=== PATIENT | male | born 1975 | race Caucasian/White ===

== ENCOUNTER 2019-11-01 16:15 | Inpatient (IN) | payer OTHER ==
[~2019-11-01] VITALS: Ht 170.2 cm; Wt 63.6 kg
--- NOTE | 2019-11-01 16:55 | NUR ---
URINE AND BLOOD TO LAB
[2019-11-01 16:57] VITALS: BP 128/69
[2019-11-01 17:08] LABS: BASOPHILS 0.2 % (0-2); EOSINOPHILS 0.1 % (0-7); HEMATOCRIT 43.8 % (42.0-54.0); HEMOGLOBIN 14.5 g/dL (13.5-17.5); IMMATURE GRANULOCYTES 0.3 % (0-5); LYMPHOCYTES 8.1 % (15-50); MCH 31.9 pg (26.0-34.0); MCHC 33.1 g/dL (31.0-37.0); MCV 96.3 fL (80.0-100.0); MONOCYTES 3.9 % (2-11); NEUTROPHILS 87.4 % (40-80); PLATELET COUNT 259 10x3/uL (130-400); RBC 4.55 10x6/uL (4.20-6.10); RDW 13.7 % (11.5-14.5); WBC 16.7 10x3/uL (4.8-10.8)
[2019-11-01 17:16] LABS: CALC OSMOLALITY 277 mosm/kg (275-300); CALCIUM 9.1 mg/dL (8.5-10.1); CARBON DIOXIDE 30.3 mmol/L (21.0-32.0); CHLORIDE - SERUM 102 mmol/L (98-107); GLUCOSE 115 mg/dL (74-106); POTASSIUM - SERUM 4.3 mmol/L (3.5-5.1); SODIUM 138 mmol/L (136-145); UREA NITROGEN 16 mg/dL (7-18); eGFR NON AFRICAN AMERICAN 86 mL/min (90-120)
[2019-11-01 17:24] LABS: ALKALINE PHOSPHATASE 65 U/L (30-120); ALT (SGPT) 26 U/L (10-68); AMYLASE - SERUM 93 U/L (25-115); BILIRUBIN - TOTAL 0.46 mg/dL (0.2-1.3); LIPASE 210 U/L (73-393); PROTEIN - SERUM 7.1 g/dL (6.4-8.2)
[2019-11-01 17:28] LABS: TROPONIN-I < 0.017 ng/mL (0.000-0.060)
[2019-11-01 17:32] LABS: BILIRUBIN NEGATIVE (NEGATIVE); GLUCOSE NEGATIVE (NEGATIVE); KETONE MODERATE mg/dL (NEGATIVE); NITRITE NEGATIVE (NEGATIVE); UROBILINOGEN NORMAL (NORMAL)
[2019-11-01 17:34] VITALS: BP 129/68
[2019-11-01 17:42] LABS: APTT 30.5 SECONDS (22.8-39.4); INR 1.04 (0.85-1.17); PROTIME 13.6 SECONDS (11.6-15.0)
--- NOTE | 2019-11-01 18:41 | NUR ---
PT ARRIVED ON UNIT VIA WHEELCHAIR ESCORTED BY ER STAFF. ORIENNTED TO ROOM AND CALL LIGHT. POSITIONED IN BED FOR COMFORT. IV FLUIDS AND ANTIBIOTICS STARTED.
--- NOTE | 2019-11-01 19:35 | NUR ---
STARTED [address]P[facility] DEPARTMENT WITH MORPHINE AT 04/16/09 WITH WITNESS. INSTRUCTIONS ON USE PROVIDED..PT EXPRESSES UNDERSTANDING.
[2019-11-01 20:00] VITALS: BP 123/66
[2019-11-01 20:20] VITALS: BP 126/66; BMI 21.9
--- NOTE | 2019-11-01 21:30 | NUR ---
HIBACLENS SHOWER PERFORMED.
[2019-11-01 21:34] VITALS: Ht 170.2 cm; Wt 63.6 kg
--- NOTE | 2019-11-01 22:30 | NUR ---
GAVE SUPPOSITORIES, MIRALAX, MOM, AND NS BOLUS PER NEW ORDERS.
[2019-11-02] VITALS: BP 97/49
[2019-11-02 04:00] VITALS: BP 105/47
[2019-11-02 05:19] LABS: BASOPHILS 0.3 % (0-2); EOSINOPHILS 2.9 % (0-7); HEMATOCRIT 39.4 % (42.0-54.0); IMMATURE GRANULOCYTES 0.3 % (0-5); LYMPHOCYTES 23.6 % (15-50); MCH 31.6 pg (26.0-34.0); MCV 95.6 fL (80.0-100.0); MONOCYTES 8.9 % (2-11); PLATELET COUNT 262 10x3/uL (130-400); RBC 4.12 10x6/uL (4.20-6.10); RDW 13.7 % (11.5-14.5)
[2019-11-02 05:23] LABS: WBC 10.5 10x3/uL (4.8-10.8)
[2019-11-02 05:28] LABS: ALKALINE PHOSPHATASE 51 U/L (30-120); ALT (SGPT) 20 U/L (10-68); BILIRUBIN - TOTAL 0.37 mg/dL (0.2-1.3); CALC OSMOLALITY 275 mosm/kg (275-300); CARBON DIOXIDE 26.6 mmol/L (21.0-32.0); CHLORIDE - SERUM 106 mmol/L (98-107); CREATININE - SERUM 0.8 mg/dL (0.6-1.3); GLUCOSE 85 mg/dL (74-106); MAGNESIUM - SERUM 1.9 mg/dL (1.8-2.4); PHOSPHOROUS 3.1 mg/dL (2.5-4.9); POTASSIUM - SERUM 3.9 mmol/L (3.5-5.1); PROTEIN - SERUM 5.5 g/dL (6.4-8.2); SODIUM 138 mmol/L (136-145); UREA NITROGEN 15 mg/dL (7-18); eGFR NON AFRICAN AMERICAN > 90 mL/min (90-120)
[2019-11-02 05:30] LABS: ALBUMIN 2.9 g/dL (3.4-5.0)
--- NOTE | 2019-11-02 06:42 | NUR ---
UPDATE GIVEN TO MD...PT TO REMAIN NPO TILL SEEN THIS AM.
--- NOTE | 2019-11-02 07:30 | NUR ---
REC'D AWAKE AND ALERT IN BED WATCHING TV. RESP EVEN AND UNLABORED WITH NO DISTRESS NOTED CAN EXPRESS NEEDS AND WANTS. NO C/O NOTED OR VOICED. ASSESSMENT COMPLETED. C/L IN REACH AT BEDSIDE. C/L IN REACH AT BEDSIDE.
[2019-11-02 08:42] VITALS: BP 96/51
--- NOTE | 2019-11-02 08:56 | NUR ---
LYING IN BED. PATIENT WITHOUT DISTRESS.CALL LIGHT IN REACH
--- NOTE | 2019-11-02 09:00 | NUR ---
OFF FLOOR TO SURGERY SUITE AT THIS TIME. PT IN STABLE CONDITION UPON DEPARTURE.
[2019-11-02] MEDS ORDERED: MIRALAX17 GM PO (10:26)
[2019-11-02] MEDS ORDERED: HYDROCODON-ACE1 EAC7 PO (10:26)
[2019-11-02 11:05] VITALS: BP 102/57
--- NOTE | 2019-11-02 11:10 | NUR ---
REC'D BACK FROM SURGERY AT THIS TIME WITH THREE LAP SITES NOTED TO ABD. NO C/O PAIN OR DISCOMFORT NOTED OR VOICED. C/L IN REACH AT BEDSIDE.
--- NOTE | 2019-11-02 18:17 | NUR ---
DC HOME VOICE UNDERSTANDING OF DC INSTRUCTION. STABLE CONDITION UPON DEPARTURE.
== END 2019-11-02 18:18 | disposition home or self-care (01) | DRG 343 ==
LOC: D.ER 16:15 → D.MS 17:13
PROVIDERS: Family Medicine; Surgery; ADMIT Emergency Medicine; ATTEND Emergency Medicine
PROC: 0DTJ4ZZ Resection of Appendix, Percutaneous Endoscopic Approach (ICD-10-PCS; principal; 2019-11-02 10:15)
DX: K35.30 Acute appendicitis with localized peritonitis, without perforation or gangrene (principal)